=== PATIENT | female | born 1970 | race African-American/Black ===

== ENCOUNTER 2016-06-27 23:59 | Emergency (ER) | payer OTHER ==
--- NOTE | ~2016-06-27 | CR63 ---
[facility] A Service of [facility] & [facility] RADIOLOGY TEXT RESULTS PATIENT: STACI REYES LOCATION: [facility] : 68 UNIT #: [id number] AGE: [address]: Nuria Avalos APRN SEX: F ORDER DR: [id number] [facility] [address] [place], [place] [address] [id number] MR#: [id number] Acc #: [id number] NAME: STACI REYES : 1970 SEX: F STUDY DATE/TIME: 06/28/2016 3:18 UNIT: [facility] ROOM: STUDY DESCRIPTION: CR Chest 2 View Attending Physician: Er Doctor Generic Ordering Physician: Nuria Avalos A.P.R.N. Primary Care Physician: Michelle Roche MEDICAL IMAGING REPORT This report is preliminary unless electronic signature is present EXAM PA and lateral views of the chest COMPARISON December 16, 2014 INDICTIONS 46-year-old female with dyspnea, cough, fever and aches for 1 month. FINDINGS No pneumothorax, pleural effusion or acute airspace disease. Cardiomegaly without pulmonary edema. IMPRESSION Cardiomegaly without pulmonary edema or other acute radiographic abnormality. Dictated by... Ricky Burch M.D. THIS IS AN ELECTRONICALLY VERIFIED REPORT Ricky Burch M.D. at 06/28/2016 6:52 PM WILVER/jennifer TD: 06/28/2016 08:24 JOB #: [id number] MEDICAL IMAGING REPORT COPY
[~2016-06-27 23:59] MED LIST: DARVOCET-N 1001 TAB PO; NO MEDICATIONS; VICODIN 5/500 T1 TAB PO
[2016-06-28 00:10] LABS: INFLUENZA A NEG (NEG); INFLUENZA B NEG (NEG)
== END 2016-06-28 05:15 | disposition home or self-care (01) ==
LOC: CED 23:59
PROVIDERS: Emergency Medicine
DX: J40 Bronchitis, not specified as acute or chronic (principal); J02.0 Streptococcal pharyngitis; J06.9 Acute upper respiratory infection, unspecified; F17.210 Nicotine dependence, cigarettes, uncomplicated; Z98.890 Other specified postprocedural states; Z98.51 Tubal ligation status
CPT/HCPCS: 71020; 87804; 87880; 94640; 96372; 99283; J0561

== ENCOUNTER 2016-06-29 15:43 | Emergency (ER) | payer OTHER | END 2016-06-29 18:03 | disposition left against medical advice (07) | LOC: CED 15:43 | DX: Z53.21 Procedure and treatment not carried out due to patient leaving prior to being seen by health care provider (principal) ==

== ENCOUNTER 2016-09-18 18:08 | Emergency (ER) | payer OTHER ==
--- NOTE | ~2016-09-18 | EKG ---
PATIENT: STACI REYES UNIT #: [id number] Ventricular Rate: 76 BPM Atrial Rate: 76 BPM P-R Interval: 142 ms QRS Duration: 76 ms Q-T Interval: 388 ms QTC Calculation(Bezet): 436 ms P [place]: 69 degrees Calculated R [place]: 65 degrees Calculated T [place]: 61 degrees Diagnosis Line: Normal sinus rhythm Diagnosis Line: Nonspecific T wave abnormality Diagnosis Line: Abnormal ECG Diagnosis Line: No previous ECGs available Diagnosis Line: Confirmed by BARBARA PÉREZ MD ([id number]) on Diagnosis Line: 09/19/2016 8:10:33 AM INTERPRETING MD: ELISA PADILLA
[2016-09-18 20:49] LABS: BUN/CREATININE RATIO 16.66; CALCIUM SERUM 8.8 mg/dL (8.4-10.2); CREATININE SERUM 0.9 mg/dL (0.6-1.4); GLOM FILT RATE Estimated 88.3 mL/min (>60); POTASSIUM 4.2 mmol/L (3.5-5.1)
== END 2016-09-18 21:26 | disposition home or self-care (01) ==
LOC: CED 18:08
PROVIDERS: Emergency Medicine
DX: E11.65 Type 2 diabetes mellitus with hyperglycemia (principal); R55 Syncope and collapse; F17.200 Nicotine dependence, unspecified, uncomplicated; Z98.51 Tubal ligation status; Z98.890 Other specified postprocedural states
CPT/HCPCS: 36415; 80048; 82947; 93005; 96360; 99284